=== PATIENT | female | born 1955 | race Caucasian/White ===

== ENCOUNTER → 2016-11-06 | Outpatient (CLI) | payer BC ==
[~2016-11-06] MED LIST: ALBU1AER9 INH; AZMINH INH; BIOTPOW17 PO; CLTP PO; DRV100 PO; IBUP600T44 PO; LISI5TAB3 PO; MULT-513 PO; SIMV10TA2 PO; SYN50 PO
[2016-11-06 09:35] LABS: BASO % 0.7 %; BASO ABS # 0.03 K/uL (0-0.2); COMPLETE YES; EOS % 1.9 %; HEMATOCRIT 40.9 % (37-47); IG% 0.2 %; LYMPH % 37.7 %; LYMPH ABS # 1.55 K/uL (1.2-3.4); MEAN CORPUSCULAR HEMOGLOBIN 31.4 pg (25-34); MEAN CORPUSCULAR HGB CONC 33.7 g/dl (32-36); MEAN PLATELET VOLUME 10.1 fL (7.4-10.4); MONO % 9.5 %; PLATELET COUNT 260 K/uL (130-400); WHITE BLOOD COUNT 4.11 K/uL (4.8-10.8)
[2016-11-06 10:06] LABS: ALT/SGPT 45 U/L (12-78); AST/SGOT 25 U/L (15-37); BLOOD UREA NITROGEN 23 mg/dl (7-18); CALCIUM 9.4 mg/dl (8.5-10.1); CARBON DIOXIDE 28 mmol/L (21-32); CHLORIDE 107 mmol/L (98-107); CREATININE 0.78 mg/dl (0.60-1.20); GLUCOSE 89 mg/dl (70-99); POTASSIUM 4.2 mmol/L (3.5-5.1); SODIUM 143 mmol/L (136-145)
[2016-11-06 10:16] LABS: CHOLESTEROL 138 mg/dl (0-200); CHOLESTEROL/HDL RATIO 1.8; HDL CHOLESTEROL 75 mg/dl; LDL CHOLESTEROL CALCULATED 53 mg/dl; THYROID STIMULATING HORMONE 0.579 uIu/ml (0.300-4.500); TRIGLYCERIDES 49 mg/dl (0-150); VERY LOW DENSITY LIPOPROT CALC 10 mg/dl
== END | disposition home or self-care (01) ==
LOC: C.LAB 07:50
DX: I10 Essential (primary) hypertension (principal); E03.9 Hypothyroidism, unspecified; E78.5 Hyperlipidemia, unspecified

== ENCOUNTER → 2016-11-15 | Outpatient (CLI) | payer SELFPAY | END | disposition home or self-care (01) | LOC: C.LAB 11:06 ==

== ENCOUNTER → 2016-11-20 | Outpatient (CLI) | payer BC | END | disposition home or self-care (01) | LOC: C.LABSPEC 15:22 | DX: J02.9 Acute pharyngitis, unspecified (principal) ==

== ENCOUNTER → 2017-05-07 | Outpatient (CLI) | payer BC ==
--- NOTE | 2017-05-07 16:10 | MAMMOGRAPHY REPORT ---
BILATERAL DIGITAL SCREENING MAMMOGRAM TOMOSYNTHESIS WITH CAD: 05/07/2017 CLINICAL HISTORY: Asymptomatic. Personal history of breast cancer. TECHNIQUE: Breast tomosynthesis in addition to standard 2D mammography was performed. Current study was also evaluated with a Computer Aided Detection (CAD) system. COMPARISON: Comparison is made to exams dated: 04/25/2016 mammogram, 04/24/2015 mammogram, 04/21/2014 m ammogram, 01/06/2013 mammogram, 01/06/2012 mammogram, and 12/31/2010 mammogram - [facility] [place]. BREAST COMPOSITION: There are scattered areas of fibroglandular density in both breasts. FINDINGS: There is evidence of prior surgery in the left breast and left axilla, with numerous surgi nancy clips projecting over the left axilla. There is a new 8 mm focal asymmetry with possible associated microcalcification in the 12:00 posterio r left breast, for which additional spot magnification views and targeted ultrasound are recommended. No other new suspicious mass, architectural distortion or cluster of microcalcifications is seen bila terally. IMPRESSION: ACR BI-RADS CATEGORY 0: INCOMPLETE EVALUATION: NEED ADDITIONAL IMAGING EVALUATION The new 8mm focal asymmetry with possible associated microcalcification in the 12:00 posterior left b reast needs additional evaluation. The patient will be called to schedule an appointment. Approximately 10% of breast cancers are not detected with mammography. A negative mammographic report should not delay biopsy if a clinically suggestive mass is present. Tameka Saleh M.D. ay/:05/07/2017 14:00:47 Concession Manager: Eli DAVILA,R, M, [facility] letter sent: Addl Imaging 0 BI-RADS Code: ACR BI-RADS Category 0: Incomplete Evaluation: Need Additional Imaging Evaluation
== END | disposition home or self-care (01) ==
LOC: C.MAMM 13:02
DX: Z12.31 Encounter for screening mammogram for malignant neoplasm of breast (principal); Z85.3 Personal history of malignant neoplasm of breast; N64.89 Other specified disorders of breast; R92.8 Other abnormal and inconclusive findings on diagnostic imaging of breast

== ENCOUNTER → 2017-05-12 | Outpatient (CLI) | payer BC ==
--- NOTE | 2017-05-12 15:53 | MAMMOGRAPHY REPORT ---
UNILATERAL LEFT DIGITAL DIAGNOSTIC MAMMOGRAM AND TARGETED LEFT ULTRASOUND: 05/12/2017 CLINICAL HISTORY: 61-year-old woman called back from screening mammography for an 8 mm focal asymmetr y with possible associated microcalcification in the 12:00 far posterior left breast. Personal histo ry of left breast cancer status post breast conservation treatment. TECHNIQUE: Spot magnification left CC and ML views were obtained. COMPARISON: Comparison is made to exams dated: 05/07/2017 mammogram, 04/25/2016 mammogram, 04/24/2015 ma mmogram, 04/21/2014 mammogram, 01/06/2013 mammogram, and 01/06/2012 mammogram - [facility]. BREAST COMPOSITION: There are scattered areas of fibroglandular density in the left breast. FINDINGS: The spot magnification views of the left breast demonstrate a 2 mm grouping of amorphous m icrocalcifications in the 12:00 posterior breast. These are best identified on the spot magnificatio n MLO view located just superior to the focal asymmetry in question. On the spot magnification view, the focal asymmetry measures 7.1 mm in maximum dimension, ovoid in shape, but it is less conspicuous on the spot magnification CC view for accurate measurements. When comparing back to prior available mammograms, the microcalcifications were not definitely identified. Further evaluation with ultraso und was performed to assess for the focal asymmetry. Targeted ultrasound was performed in the superior breast with particular attention to the 11:00 and 1 2:00 axes. In the 11:00 left breast, 7 cm from the nipple, there is a mixed echogenicity ill-defined solid-appearing mass measuring 6.9 x 4.4 x 6.1 mm, with possible internal punctate reflectors which could represent microcalcifications. This is thought to correlate with the focal asymmetry seen mamm ographically and is indeterminate. Differential considerations include fat necrosis and recurrent di sease. Further evaluation with an ultrasound-guided core biopsy is recommended. IMPRESSION: ACR BI-RADS CATEGORY 4B: INTERMEDIATE SUSPICION FOR MALIGNANCY, TARGETED ULTRASOUND ACR BI-RADS CATEGORY 4B: INTERMEDIATE SUSPICION FOR MALIGNANCY 1. Ultrasound guided core biopsy is recommended in the 11:00 left breast, 7 cm from the nipple, for an ill-defined mixed echogenicity 7 mm mass possible associated calcification, thought to correlate w ith the mammographic findings. These results and recommendations were discussed with the patient and her at the time of the exam. Approximately 10% of breast cancers are not detected with mammography. A negative mammographic report should not delay biopsy if a clinically suggestive mass is present. Tameka Saleh M.D. ay/:05/12/2017 12:26:54 Laundry [address] Driver: Jourdan DAVILA(Ramses)(Azucena), [facility] letter sent: Abnormal 4/5 BI-RADS Code: ACR BI-RADS Category 4B: Intermediate Suspicion For Malignancy Ultrasound BI-RADS: ACR BI-RADS Category 4B: Intermediate Suspicion For Malignancy
== END | disposition home or self-care (01) ==
LOC: C.MAMM 10:57
DX: N64.89 Other specified disorders of breast (principal); N63 Unspecified lump in breast

== ENCOUNTER → 2017-05-20 | Outpatient (CLI) | payer BC ==
--- NOTE | 2017-05-20 09:04 | Discharge Instructions ---
Discharge Instructions Procedure Procedure Date: May 20, 2017. Reason for visit: Left Mass. Discharge Discharge Date: May 20, 2017. Discharge Diagnosis: post left breast ultrasound guided core biopsy Instructions Activity Recommendations: Additional Limitations (see below) Return to School/Work: no limitations Recommended Home Diet: No Limitations Provider Instructions: ACTIVITY RECOMMENDATIONS: * No lifting, pushing, pulling or exercising the affected side for three days. RETURN TO SCHOOL/WORK: * You may return to work/school after the procedure, but do not perform any strenuous activities for 24 to 48 hours. MEDICATIONS: * Tylenol (two 325 mg) every four to six hours if needed for mild pain (if not allergic to Tylenol). DIET: * Resume previous diet. SPECIAL CARE INSTRUCTIONS: * Keep biopsy site dry for 24 hours. May shower after 24 hours, but do not soak (bathe) incision. * May remove Tegaderm (plastic patch) tomorrow AFTER showering. * Leave the steri-strips on for one week. Allow the steri-strips to fall off by themselves. If not off after one week, you may remove them. You may place a Bandaid crosswise over the strips, if desired. * Apply ice 10 minutes on and 10 minutes off as needed. * Wear a bra at bedtime to sleep more comfortably for 2-3 days. * Your referring physician should have the results after approximately 5 to 7 business days. * Call for unusual bleeding, fever, drainage, etc or if you have any questions call [phone] during normal business hours or after hours call Dr Saleh, . FOLLOW UP VISIT: Follow-up with Referring Physician as scheduled. Allergies Coded Allergies: Sulfa Drugs (Unverified Allergy, Mild, 10/06/09) Trimethoprim (Unverified Allergy, Mild, 10/06/09) Brittney Reyes Recommendations: Call your doctor if: * Temperature above 101 degrees * Pain not relieved by pain medicine ordered * There is increased drainage or redness from any incision * You have any unanswered questions or concerns. Your Doctors Instructions noted above were prepared by provider Tameka Saleh. Patient Signature Section: Patient Instructions Signature Page Parul Peterson Patient (or Guardian) Signature/Date: I have read and understand the instructions given to me by my caregivers. Caregiver/RN/Doctor Signature/Date: The above-named patient and/or guardian has received patient instructions on this date. + Original Patient Signature Page (only) stays with chart. Please make copy for patient.
--- NOTE | 2017-05-20 13:03 | MAMMOGRAPHY REPORT ---
UNILATERAL LEFT DIGITAL DIAGNOSTIC MAMMOGRAM TOMOSYNTHESIS: 05/20/2017 CLINICAL HISTORY: Status post ultrasound-guided core biopsy of a focal asymmetry versus mass with ass ociated calcification in the 11:00 posterior left breast. Please refer to the report from left breast ultrasound guided core biopsy performed at the same time for full detail. IMPRESSION: POST PROCEDURE IMAGING FOR MARKER PLACEMENT Please refer to the report from left breast ultrasound guided core biopsy performed at the same time for full detail. Approximately 10% of breast cancers are not detected with mammography. A negative mammographic report should not delay biopsy if a clinically suggestive mass is present. Tameka Saleh M.D. ay/:05/20/2017 09:02:13 Strickler Attendant: Jourdan DAVILA(Ramses)(M), [facility] BI-RADS Code: Post Procedure Imaging For Marker Placement
--- NOTE | 2017-05-20 13:03 | MAMMOGRAPHY REPORT ---
SPECIMEN: 05/20/2017 CLINICAL HISTORY: Ultrasound-guided core biopsy of a mass with possible associated calcification in t he 11:00 posterior left breast. A specimen radiograph was performed to assess for any calcification in the samples. Please refer to the report from left breast ultrasound guided core biopsy performed at the same time for full detail. IMPRESSION: SPECIMEN Please refer to the report from left breast ultrasound guided core biopsy performed at the same time for full detail. Tameka Saleh M.D. ay/:05/20/2017 09:02:51 Attending Technologist: Jessica Marroquin RT(R)(M), [facility] Sterilization Tech: Jourdan Fried RT(R)(M), [facility]
--- NOTE | 2017-05-27 09:04 | MAMMOGRAPHY REPORT ---
ULTRASOUND GUIDED BIOPSY LEFT BREAST: 05/20/2017 CLINICAL HISTORY: 61-year-old woman with an indeterminate heterogeneous solid mass with associated ca lcification in the 11:00 posterior left breast. She presents for ultrasound-guided core biopsy. COMPARISON: Comparison is made to exams dated: 05/12/2017 ultrasound, 05/12/2017 mammogram, 05/07/2017 m ammogram, 04/25/2016 mammogram, 04/24/2015 mammogram, and 04/21/2014 mammogram - [facility] [place]. PATIENT CONSENT: The procedure, risks and benefits were discussed with the patient and informed conse nt was obtained both verbally and in writing. Specific risks to this procedure include: bleeding, in fection, puncture of adjacent structure, nontarget biopsy, sampling error, pain, metal allergy and me dication reaction. PROCEDURE DESCRIPTION: A time out was performed and the left breast was agreed as the site of biopsy. The skin was prepped and draped in the usual sterile fashion. The heterogeneous solid mass in the 11 :00 left breast was chosen as the target for biopsy. Subcutaneous and intraparenchymal 1% buffered li docaine, with and without epinephrine, was administered as local anesthesia. A skin incision was made . Through the incision, 6 samples were taken with a 14 gauge Achieve biopsy device. A specimen radi ograph was obtained of the calcifications, and 2 core samples contain calcifications which were assoc iated with the mass. Then, a ribbon shaped metallic marker was placed at the biopsy site. Hemostasis was achieved after manual compression. The patient tolerated the procedure well and there was no imm ediate complication. The samples were sent to the pathology department in an appropriately labeled c ontainer. Postprocedure left CC and ML tomosynthesis images were obtained. A new ribbon-shaped biopsy marker c lip is seen in the 11:00 to 12:00 far posterior left breast, aligning with a focal asymmetry, confirm ing mammographicsonographic correlation. No significant postbiopsy hematoma is identified. IMPRESSION: ULTRASOUND GUIDED BIOPSY Status post ultrasound-guided core biopsy of an indeterminate heterogeneous solid mass with associate d calcification in the 11:00 posterior left breast, with biopsy marker placed at the site. The patient will receive notification of the biopsy results from her referring physician. Tameka Saleh M.D. ay/:05/20/2017 12:33:42 Attending Technologist: Dr. Tameka Saleh, [facility] Fire Engine Operator: Jourdan Fried RT(R)(M), [facility]
== END | disposition home or self-care (01) ==
LOC: C.MAMM 07:59
DX: C50.912 Malignant neoplasm of unspecified site of left female breast (principal)

== ENCOUNTER → 2017-07-21 | Outpatient (CLI) | payer BC | END | disposition home or self-care (01) | LOC: C.PAPS 09:43 | PROVIDERS: ATTEND Obstetrics & Gynecology | DX: Z01.419 Encounter for gynecological examination (general) (routine) without abnormal findings (principal) ==

== ENCOUNTER → 2017-11-17 | Day surgery (SDC) | payer BC ==
[2017-10-29 15:27] VITALS: Ht 157.5 cm; Wt 75.0 kg
[~2017-11-17] VITALS: Ht 157.5 cm; Wt 75.0 kg
[~2017-11-17] MED LIST changes: -ALBU1AER9 INH; +ATOR-22 PO; -AZMINH INH; -BIOTPOW17 PO; +CALC-214 PO; -CLTP PO; -DRV100 PO; +FLUO20CA35 PO; +FMR25 PO; -IBUP600T44 PO; +LEVO75TA5 PO; +LIDOCAINE HCL 2% 2 ML VIAL (20MG/ML) ONE; +LISI-461 PO; -LISI5TAB3 PO; +OMEG10007 PO; +PROPOFOL IV EMULSION 10 MG/ML 20 ML VIAL IV ONE; -SIMV10TA2 PO; +SODIUM CHLORIDE 0.9% 500ML 500 ML IV ONE; -SYN50 PO; +VNTHFA/IN INH
--- NOTE | 2017-11-17 08:33 | Endo History and Physical ---
History & Physical Date of Service: Nov 17, 2017. Chief Complaint: Screening Referring Physician: Dr. Carpenter History of Present Illness 62 yo CF who presents for screening colonoscopy. Past Surgical History Hx Cardiac Surgery: No Hx Internal Defibrillator: No Hx Pacemaker: No Hx Abdominal Surgery: Yes (HYSTER) Hx of Implantable Prosthesis: No Hx Post-Op Nausea and Vomiting: No Hx Cancer Surgery: Yes (LT BREAST LUMPECTOMY X2 WITH SLN) Hx Thoracic Surgery: No Hx Orthopedic: Yes (LT ANKLE FX REPAIR) Hx Urinary Tract Surgery: No Family History Colon CA Social History Smoking Status: Never Smoker Hx Substance Use: No Hx Alcohol Use: No Allergies Coded Allergies: Sulfamethoxazole w/Trimethoprim (Verified Allergy, Unknown, GI UPSET, 10/29) Current Medications Reported Home Medications Medications Dose Route/Sig Max Daily Dose Days Date Category Ventolin Hfa (Albuterol) 200 Puffs/35080 Mcg Aers 2-4 Puffs INH Q6H PRN 10/29/17 Reported [place]-3 (Fish Oil) 1 Ea Cap 1 Cap PO BID 10/29/17 Reported Calcium & Magnesium (Calcium W/ Magnesium) 1 Tab Tab 2 Tabs PO BID 10/29/17 Reported Femara (Letrozole) 2.5 Mg Tab 2.5 Mg PO QPM 10/29/17 Reported Lipitor (Atorvastatin Calcium) 20 Mg Tab 20 Mg PO QPM 10/29/17 Reported Levothyroxine Sodium 75 Mcg Tab 1 Tab PO QAM 10/29/17 Reported Zestril (Lisinopril) 10 Mg Tab 10 Mg PO QAM 10/29/17 Reported Prozac (Fluoxetine HCl) 20 Mg Cap 20 Mg PO QPM 10/29/17 Reported Mvi With Minerals (Multivitamins/Minerals) Tab 1 Tab PO BID 04/04/10 Reported Vital Signs Weight (Kilograms): 75 Height (Feet): 5 Height (Inches): 2 Physical Exam General Appearance: WD/WN, no apparent distress Respiratory/Chest: Auscultation: breath sounds normal Cardiovascular: Heart Auscultation: RRR Abdomen: Bowel Sounds: normal Inspection & Palpation: soft, non-distended, no tenderness, guarding & rebound Assessment and Plan Assessment: 62 yo CF who presents for screening colonoscopy. Plan: Proceed with colonoscopy.
[2017-11-17 08:34] VITALS: TEMP 36.9
--- NOTE | 2017-11-17 09:06 | Discharge Instructions ---
Endoscopy Patient Instructions Date / Procedure(s) Performed Nov 17, 2017. Colonoscopy Allergy Information Coded Allergies: Sulfamethoxazole w/Trimethoprim (Verified Allergy, Unknown, GI UPSET, 10/29) Discharge Date / Findings Nov 17, 2017. Colon polyps Diverticulosis Internal hemorrhoids Medication Instructions OK to resume all medications today as prescribed Reported Home Medications Medications Dose Route/Sig Max Daily Dose Days Date Category Ventolin Hfa (Albuterol) 200 Puffs/85031 Mcg Aers 2-4 Puffs INH Q6H PRN 10/29/17 Reported [place]-3 (Fish Oil) 1 Ea Cap 1 Cap PO BID 10/29/17 Reported Calcium & Magnesium (Calcium W/ Magnesium) 1 Tab Tab 2 Tabs PO BID 10/29/17 Reported Femara (Letrozole) 2.5 Mg Tab 2.5 Mg PO QPM 10/29/17 Reported Lipitor (Atorvastatin Calcium) 20 Mg Tab 20 Mg PO QPM 10/29/17 Reported Levothyroxine Sodium 75 Mcg Tab 1 Tab PO QAM 10/29/17 Reported Zestril (Lisinopril) 10 Mg Tab 10 Mg PO QAM 10/29/17 Reported Prozac (Fluoxetine HCl) 20 Mg Cap 20 Mg PO QPM 10/29/17 Reported Mvi With Minerals (Multivitamins/Minerals) Tab 1 Tab PO BID 04/04/10 Reported Provider Instructions Activity Restrictions - No exercising or heavy lifting for 24 hours. - Do not drink alcohol the day of the procedure. - Do not drive a car or operate machinery until the day after the procedure. - Do not make any important decisions or sign important papers in 24 hours after the procedure. Following Day: - Return to full activity which may include returning to work/school. Diet Start your diet with liquids and light foods (jello, soup, juice, toast). Then eat your usual diet if not nauseated. Treatment For Common After Affects For mild abdominal pain, bloating, or excessive gas: - Rest - Eat lightly - Lie on right side Follow-Up Information Follow-up with Dr. Carpenter as scheduled Anesthesia Information What You Should Know You have had a procedure that required some medicine to reduce anxiety and discomfort. This treatment is called moderate sedation. After receiving the treatment, you may be sleepy, but you will be able to breathe on your own. The effects of the treatment may last for several hours. Follow these instructions along with Activity/Diet recommendations noted above: * Do NOT do anything where dizziness or clumsiness would be dangerous. * Rest quietly at home today, then you can be up and about tomorrow. * Have a responsible person stay with you the rest of today. * You may have had an I.V. today. If so, you may take the dressing off later today. Recommendations Call your doctor if: * Trouble breathing * Continuous vomiting for more than 24 hours * Temperature above 101 degrees * Severe abdominal pain or bloating * Pain not relieved by pain medicine ordered * There is increased drainage or redness from any incision * A large amount of rectal bleeding greater than 2-3 tablespoons. (If you had a polyp/s removed or have hemorrhoids, a small amount of blood - from the rectum is to be expected.) * You have any unanswered questions or concerns. IN THE EVENT OF A SERIOUS EMERGENCY, GO TO THE NEAREST EMERGENCY ROOM Your discharge instructions were prepared by provider Grant Sarmiento. Patient Instructions Signature Page Parul Peterson Patient (or Guardian) Signature/Date: I have read and understand the instructions given to me by my caregivers. Caregiver/RN/Doctor Signature/Date: The above-named patient and/or guardian has received patient instructions on this date. + Original Patient Signature Page (only) stays with chart. Please make copy for patient.
--- NOTE | 2017-11-17 09:06 | GI REPORT ---
Procedure Date: 11/17/2017 8:15 AM Procedure: Colonoscopy Indications: Screening for colorectal malignant neoplasm Medicines: Monitored Anesthesia Care Complications: No immediate complications. Estimated Blood Loss: Estimated blood loss: none. Procedure: Pre-Anesthesia Assessment: - Prior to the procedure, a History and Physical was performed, and patient medications and allergies were reviewed. The patient's tolerance of previous anesthesia was also reviewed. The risks and benefits of the procedure and the sedation options and risks were discussed with the patient. All questions were answered, and informed consent was obtained. Prior Anticoagulants: The patient has taken no previous anticoagulant or antiplatelet agents. ASA Grade Assessment: II - A patient with mild systemic disease. After reviewing the risks and benefits, the patient was deemed in satisfactory condition to undergo the procedure. After I obtained informed consent, the scope was passed under direct vision. Throughout the procedure, the patient's blood pressure, pulse, and oxygen saturations were monitored continuously. The scope was introduced through the anus and advanced to the terminal ileum. The colonoscopy was performed without difficulty. The patient tolerated the procedure well. The quality of the bowel preparation was good. The terminal ileum, ileocecal valve, appendiceal orifice, and rectum were photographed. Findings: The perianal and digital rectal examinations were normal. Two sessile polyps were found in the sigmoid colon. The polyps were 4 to 6 mm in size. These polyps were removed with a hot snare. Resection and retrieval were complete. Multiple small-mouthed diverticula were found in the sigmoid colon. Non-bleeding internal hemorrhoids were found during retroflexion. The hemorrhoids were small. Impression: - Two 4 to 6 mm polyps in the sigmoid colon, removed with a hot snare. Resected and retrieved. - Diverticulosis in the sigmoid colon. - Non-bleeding internal hemorrhoids. Recommendation: - Resume previous diet. - Continue present medications. - Repeat colonoscopy for surveillance based on pathology results. - Return to primary care physician as previously scheduled. Grant Sarmiento, DO 11/17/2017 9:05:46 AM This report has been signed electronically. Note Initiated On: 11/17/2017 8:15 AM I attest to the content of the Intraoperative Record and orders documented therein, exceptions below
--- NOTE | 2017-11-17 09:20 | Anesthesiology Progress Note ---
Anesthesia Post Op Note Date & Time Nov 17, 2017 at 09:20 Vital Signs Pain Intensity: 0 Vital Signs Past 12 Hours Date Time Temp Pulse Resp B/P (MAP) Pulse Ox O2 Delivery O2 Flow Rate FiO2 11/17/17 09:08 88 16 103/66 (78) 96 Room Air 11/17/17 08:34 36.9 96 16 146/98 (114) 98 Notes Mental Status: alert / awake / arousable, participated in evaluation Pt Amnestic to Procedure: Yes Nausea / Vomiting: adequately controlled Pain: adequately controlled Airway Patency, RR, SpO2: stable & adequate BP & HR: stable & adequate Hydration State: stable & adequate Anesthetic Complications: no major complications apparent
[2017-11-17 09:38] VITALS: BP 107/70; PULSE 67; O2SAT 96
== END | disposition home or self-care (01) ==
LOC: C.GI 07:54
PROVIDERS: ATTEND Internal Medicine
DX: Z12.11 Encounter for screening for malignant neoplasm of colon (principal); K63.5 Polyp of colon; K57.30 Diverticulosis of large intestine without perforation or abscess without bleeding; K64.8 Other hemorrhoids; J45.909 Unspecified asthma, uncomplicated; Z88.2 Allergy status to sulfonamides; Z90.710 Acquired absence of both cervix and uterus; Z90.89 Acquired absence of other organs; Z98.890 Other specified postprocedural states; Z79.899 Other long term (current) drug therapy; Z85.3 Personal history of malignant neoplasm of breast; Z80.0 Family history of malignant neoplasm of digestive organs

== ENCOUNTER → 2017-12-15 | Outpatient (CLI) | payer BC ==
[~2017-12-15] MED LIST changes: -LIDOCAINE HCL 2% 2 ML VIAL (20MG/ML) ONE; -PROPOFOL IV EMULSION 10 MG/ML 20 ML VIAL IV ONE; -SODIUM CHLORIDE 0.9% 500ML 500 ML IV ONE
[2017-12-15 10:05] LABS: AST/SGOT 26 U/L (15-37); BLOOD UREA NITROGEN 16 mg/dl (7-18); CALCIUM 9.6 mg/dl (8.5-10.1); CARBON DIOXIDE 28 mmol/L (21-32); CREATININE 0.82 mg/dl (0.60-1.20); GLUCOSE 88 mg/dl (70-99); POTASSIUM 3.8 mmol/L (3.5-5.1); SODIUM 138 mmol/L (136-145)
[2017-12-15 10:15] LABS: ALT/SGPT 41 U/L (12-78)
== END | disposition home or self-care (01) ==
LOC: C.LAB 07:12
DX: I10 Essential (primary) hypertension (principal); E78.5 Hyperlipidemia, unspecified; E03.9 Hypothyroidism, unspecified